=== PATIENT | male | born 1985 | race Caucasian/White ===

== ENCOUNTER 2020-05-09 18:26 | Emergency (ER) | payer SELFPAY ==
[~2020-05-09] VITALS: Ht 165.1 cm; Wt 77.5 kg
[2020-05-09 18:31] VITALS: BP 189/111
[2020-05-09] MEDS ORDERED: LIDOCAINE HCL/PF 1% 10 MG/ML 5ML VIAL IJ ONE (19:45)
[2020-05-09] MEDS ORDERED: ACETAMINOPHEN 325MG TABLET PO ONE (19:45)
[2020-05-09] MEDS ORDERED: TETANUS, DIPHTHERIA, PERTUSSIS VAC/PF 0.5ML (>7YR OLD) IM ONE (19:45)
[2020-05-09] MEDS ORDERED: BACITRACIN ZINC OINT UDPKT TOP ONE (19:45)
== END 2020-05-09 20:45 | disposition left against medical advice (07) ==
LOC: ER 18:26
DX: S61.217A Laceration without foreign body of left little finger without damage to nail, initial encounter (principal); F14.10 Cocaine abuse, uncomplicated; F12.10 Cannabis abuse, uncomplicated; F15.10 Other stimulant abuse, uncomplicated; F41.9 Anxiety disorder, unspecified; W22.8XXA Striking against or struck by other objects, initial encounter; W25.XXXA Contact with sharp glass, initial encounter; Y93.89 Activity, other specified; Y92.018 Other place in single-family (private) house as the place of occurrence of the external cause
CPT/HCPCS: 12001; 93005; 99283; Z7610